=== PATIENT | female | born 1985 | race American Indian/Alaskan Native ===

== ENCOUNTER 2019-02-10 10:14 | Inpatient (IN) | payer OTHER ==
[~2019-02-10] VITALS: Ht 152.4 cm; Wt 71.2 kg
[2019-03-16] MEDS ORDERED: PRENATAL TABLE1 EACH PO (09:58)
== END 2019-03-18 13:56 | DRG 807 ==
LOC: OB/GYN 03-03 09:15 → LDR 03-16 09:11 → SURG-SUITE 03-16 13:20
PROVIDERS: ADMIT Obstetrics & Gynecology
PROC: 10E0XZZ Delivery of Products of Conception, External Approach (ICD-10-PCS; principal; 2019-03-16)
PROC: 0KQM0ZZ Repair Perineum Muscle, Open Approach (ICD-10-PCS; 2019-03-16)
PROC: 4A1HXCZ Monitoring of Products of Conception, Cardiac Rate, External Approach (ICD-10-PCS; 2019-03-16)
PROC: 0W8NXZZ Division of Female Perineum, External Approach (ICD-10-PCS; 2019-03-16)
PROC: 4A033R1 Measurement of Arterial Saturation, Peripheral, Percutaneous Approach (ICD-10-PCS; 2019-03-16)
DX: O70.1 Second degree perineal laceration during delivery (principal); Z37.0 Single live birth; Z3A.40 40 weeks gestation of pregnancy; Z22.330 Carrier of Group B streptococcus

== ENCOUNTER 2019-03-10 09:22 | Outpatient (CLI) | payer OTHER | END 2019-03-10 10:19 | disposition home or self-care (01) | LOC: NST 09:22 | DX: Z34.83 Encounter for supervision of other normal pregnancy, third trimester (principal) ==